=== PATIENT | male | born 1980 | race Caucasian/White ===

== ENCOUNTER 2017-08-16 13:13 | Inpatient (IN) | payer OTHER ==
[2017-08-16] VITALS (7 sets, daily range): BP systolic 104–136; BP diastolic 60–72; PULSE 117–125; TEMP 36.7–36.8; O2SAT 98–99; BMI 21.6
[~2017-08-16] VITALS: Ht 175.3 cm; Wt 67.4 kg
[2017-08-16 18:11] LABS: HEMATOCRIT 40.4 % (42-52); MEAN CELL VOLUME 96.7 fL (80-100); MEAN CORPUSCULAR HEMOGLOBIN 33.5 pg (25-34); MEAN CORPUSCULAR HGB CONC 34.7 g/dl (32-36); MEAN PLATELET VOLUME 9.7 fL (7.4-10.4); PLATELET COUNT 522 K/uL (130-400); RED CELL DISTRIBUTION WIDTH CV 13.4 % (11.5-14.5); RED CELL DISTRIBUTION WIDTH SD 47.4 fL (36.4-46.3); WHITE BLOOD COUNT 41.35 K/uL (4.8-10.8)
[2017-08-16 18:13] LABS: INR 0.9 (0.9-1.1); PTT PATIENT 23.7 SECONDS (21.0-31.0)
[2017-08-16 18:31] LABS: ALBUMIN 3.6 gm/dl (3.4-5.0); ALKALINE PHOSPHATASE 313 U/L (45-117); ALT/SGPT 431 U/L (12-78); AST/SGOT 1183 U/L (15-37); BLOOD UREA NITROGEN 38 mg/dl (7-18); CALCIUM 9.1 mg/dl (8.5-10.1); CARBON DIOXIDE 6 mmol/L (21-32); CKMB 2.9 ng/ml (0.5-3.6); CREATININE 2.48 mg/dl (0.60-1.40); GLUCOSE 702 mg/dl (70-99); PHOSPHORUS 4.4 mg/dl (2.5-4.9); POTASSIUM 4.5 mmol/L (3.5-5.1); SODIUM 135 mmol/L (136-145); TOTAL PROTEIN 7.3 gm/dl (6.4-8.2)
[2017-08-16] MEDS ORDERED: PHARMACY GLYCEMIC MGMT CONSULT SCH (19:26)
--- NOTE | 2017-08-16 19:43 | Critical Care Consultation ---
Critical Care Consultation Date of Consultation: Aug 16, 2017. Attending Physician: Sivakumar Gruber M.D. Reason for Consultation: Diabetic ketoacidosis History of Present Illness This is a 37 year old male with h/o DM type 1, with multiple episodes of DKA, transferred from [facility] for further management of diabetic ketoacidosis. Apparently he was found by his mother laying down, unresponsive, hyperventilating. In ED at [facility] he was diagnosed with DKA, had blood glucose of 1160, bicarb of 3, pH of 6.81, elevated anion gap at 36. Treated with IV fluids, insulin drip , Abx (WBC of 43), mental status improved slightly. Also treated for hyperkalemia, initially 7.1, improved to 4.9. Was transferred to us for further management. Urine drug screen negative. Came with right femoral TLC The patient is mildly lethargic, poor historian, denies non-compliance, but per reports he was surrounded by empty Mountain Dew drinks Social History Smoking Status: Unknown if Ever Smoked Allergies Coded Allergies: No Known Allergies (Unverified , 08/16/17) Current Inpatient Medications Current Inpatient Medications Medications (Trade) Dose Ordered Sig/Antolin Route Start Time Stop Time Status Last Admin Dose Admin Sodium Chloride 2,000 ml @ 999 mls/hr Q2H1M IV 08/16/17 18:00 09/15/17 17:59 UNV Sodium Chloride 1,000 ml @ 150 mls/hr Q6H40M IV 08/16/17 18:00 09/15/17 17:59 UNV Review of Systems Difficult to obtain secondary to confusion Physical Exam Date Time Temp Pulse Resp B/P (MAP) Pulse Ox O2 Delivery O2 Flow Rate FiO2 08/16/17 19:00 120 30 135/72 (93) 98 Room Air 08/16/17 17:42 36.7 120 22 108/70 99 Room Air General Appearance: moderate distress Eyes: PERRLA ENT: other (Dry oral mucosa) Neck: normal range of motion, no nuchal rigidity Respiratory: clear to auscultation, other (tachypneic) Cardiovasular: regular rate/rhythm, normal S1S2, other (Tachycardic) Abdomen: non tender, no guarding Upper Extremities: no edema Lower Extremities: no edema Neuro: lethargic, confused Laboratory Results Last 24 Hours Test 08/16/17 17:48 08/16/17 18:20 08/16/17 18:30 White Blood Count 41.35 K/uL Red Blood Count 4.18 M/uL Hemoglobin 14.0 g/dL Hematocrit 40.4 % Mean Corpuscular Volume 96.7 fL Mean Corpuscular Hemoglobin 33.5 pg Mean Corpuscular Hemoglobin Concent 34.7 g/dl Platelet Count 522 K/uL Mean Platelet Volume 9.7 fL RDW Standard Deviation 47.4 fL RDW Coefficient of Variation 13.4 % Neutrophils % (Manual) 89.7 % Lymphocytes % (Manual) 8.6 % Monocytes % (Manual) 1.7 % Neutrophils # (Manual) 37.09 K/uL Total Absolute Neutrophils 37.09 K/uL Lymphocytes # (Manual) 3.56 K/uL Total Absolute Lymphocytes 3.56 K/uL Monocytes # (Manual) 0.70 K/uL Hypersegmented Polys 1+ Prothrombin Time 9.7 SECONDS Prothromb Time International Ratio 0.9 Activated Partial Thromboplast Time 23.7 SECONDS Partial Thromboplastin Ratio 0.9 Sodium Level 135 mmol/L Potassium Level 4.5 mmol/L Chloride Level 100 mmol/L Carbon Dioxide Level 6 mmol/L Anion Gap 30.0 mmol/L Blood Urea Nitrogen 38 mg/dl Creatinine 2.48 mg/dl Est Creatinine Clear Calc Drug Dose 38.2 ml/min Estimated GFR () 37.0 Estimated GFR (Non- 31.9 BUN/Creatinine Ratio 15.4 Random Glucose 702 mg/dl Lactic Acid Level 9.0 mmol/L Calcium Level 9.1 mg/dl Phosphorus Level 4.4 mg/dl Magnesium Level 2.7 mg/dl Total Bilirubin 0.6 mg/dl Aspartate Amino Transf (AST/SGOT) 1183 U/L Alanine Aminotransferase (ALT/SGPT) 431 U/L Alkaline Phosphatase 313 U/L Total Creatine Kinase 144 U/L Creatine Kinase MB 2.9 ng/ml Creatine Kinase MB Ratio 2.0 Troponin I < 0.015 ng/ml Total Protein 7.3 gm/dl Albumin 3.6 gm/dl Globulin 3.7 gm/dl Albumin/Globulin Ratio 1.0 Beta-Hydroxybutyric Acid 68.80 mg/dL Procalcitonin 13.12 ng/ml Venous Blood pH 7.23 Venous Blood Partial Pressure CO2 22 mmHg Venous Blood Partial Pressure O2 43 mmHg Venous Blood HCO3 9 mmol/L Venous Blood Oxygen Saturation 74.6 % Venous Blood Base Excess -16.6 mEq/L Urine Color YELLOW Urine Appearance CLOUDY Urine pH 5.0 Urine Specific [place] 1.033 Urine Protein 2+ Urine Glucose (UA) 3+ Urine Ketones 2+ Urine Occult Blood 2+ Urine Nitrite NEG Urine Bilirubin NEG Urine Urobilinogen NEG Urine Leukocyte Esterase NEG Assessment & Plan Severe DKA MARYJANE SIRS, rule out sepsis DM-1 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 Doubt meningitis. No need for CT brain, monitor clinically Pulmonary: Protecting his airway well Kussmaul breathing CXR not seen in [facility] papers. Will order CVS: Severely dehydrated Continue IV fluids Endo: Continue insulin drip Check HbA1C Renal/metabolic: Monitor chemistry every 4 hours Gap still elevated, 30 now Keep Hirsch in, has significant urine output, representing osmotic diuresis Elevated lactic acid, continue to trend ID: Blood cultures sent at [facility]. Received Vanco and Zosyn over there, will continue same. Add Zithromax Trend procalcitonin and lactic acid GI: NPO Protonix for GI bleeding prophylaxis Trend LFTs. May represent shock liver, being hypotensive initially Heme: Significant leukocytosis. May very well be related to DKA, still doubt infectious insult DVT prophylaxis: SC heparin Critical care time spent with the patient, reviewing chart, discussing with consultants, excluding procedures, greater than 35 minutes
[2017-08-16] MEDS ORDERED: GLUCOSE 10 TABS/TUBE PO PRN (19:45)
[2017-08-16] MEDS ORDERED: INSULIN HUMAN REGULAR IV BOLUS 2.5 UNIT in SYRINGE 0 ML IV SCH (19:45)
[2017-08-16] MEDS ORDERED: VANCOMYCIN CONSULT ACTIVE PRN (19:45)
[2017-08-16] MEDS ORDERED: GLUCAGON FOR INJ 1 MG VIAL SQ PRN (19:45)
[2017-08-16] MEDS ORDERED: GLUCOSE 40% GEL 15 GM TUBE PO PRN (19:45)
[2017-08-16] MEDS ORDERED: PIPERACILL/TAZOBAC CONSULT ACTIVE PRN (19:45)
[2017-08-16] MEDS ORDERED: DEXTROSE 50% 50 ML SYR IV PRN (19:45)
[2017-08-16] MEDS ORDERED: INSULIN IV INFUSION PROTOCOL STA (19:47)
[2017-08-16] MEDS ORDERED: SODIUM CHLORIDE 0.9% 1000ML 1,000 ML IV SCH ×2 (19:47→20:00)
[2017-08-16] MEDS: SODIUM CHLORIDE 0.9% 1000ML 1,000 ML IV SCH ×2 (19:58→20:36)
[2017-08-16] MEDS ORDERED: PENDING NSS+20mEq KCL IVF SCH (20:00)
[2017-08-16] MEDS: INSULIN REGULAR 250 UNITS in SODIUM CHLORIDE 0.9% 250ML 250 ML IV SCH (20:00)
[2017-08-16] MEDS ORDERED: DKA GOAL RANGE 150-250 mg/dl 1 EA ONE (20:00)
[2017-08-16] MEDS ORDERED: PENDING D5 1/2NS+20mEq KCL IVF SCH (20:00)
[2017-08-16] MEDS ORDERED: SEVERE STRESS LEVEL ONE (20:00)
[2017-08-16] MEDS: INSULIN ASPART 100 UNITS/ML 3 ML PEN SC SCH (20:01)
[2017-08-16] MEDS ORDERED: MoRPHine SULFATE 2 MG/ML CARP IV PRN (20:15)
[2017-08-16] MEDS ORDERED: FENTANYL CITRATE INJ 50 MCG/1 ML 2 ML VIAL IV PRN (20:15)
[2017-08-16] MEDS ORDERED: LORAZEPAM 2 MG/ML 1 ML VIAL IV PRN (20:15)
[2017-08-16] MEDS: ONDANSETRON INJ 2 MG/ML 2 ML VIAL IV PRN (20:35)
[2017-08-16] MEDS ORDERED: LORAZEPAM INJ 0.5 MG in SYRINGE 0.75 ML IV PRN (20:45)
--- NOTE | 2017-08-16 20:55 | History and Physical ---
History & Physical Date & Time of Service: Aug 16, 2017 at 20:32 Chief Complaint: Severe Dka Primary Care Physician: No Doctor, Assigned History of Present Illness Source: patient This patient is a 37-year-old male with history of type 1 diabetes, major depressive disorder, and anxiety disorder, who presents as a direct transfer from [facility] emergency room with DKA. He was reportedly found down by his family, hyperventilating, and minimally responsive. In ED at [facility] he was diagnosed with DKA, had blood glucose of 1160, bicarb of 3, pH of 6.81, elevated anion gap at 36. Treated with IV fluids, insulin drip , Abx (WBC of 43), mental status improved slightly. Also treated for hyperkalemia, initially 7.1, improved to 4.9. Was transferred to us for further management. Urine drug screen negative. Came with right femoral TLC The patient is mildly lethargic, denies non-compliance, but per reports he was surrounded by empty Mountain Dew drinks. Patient reports some nausea and abdominal pain, maybe a recent runny nose, but otherwise has been feeling well until one day ago. Denies fevers at home. No flulike symptoms. Past Medical/Surgical History PMH: Diabetes mellitus type 1 Major depressive disorder Anxiety disorder PSH: Cholecystectomy Left ACL repair Right ankle ORIF Family History Father- at age 46 from a traumatic accident, otherwise healthy Mother-diabetes mellitus type 2 Social History Home medications: Prozac 60 mg p.o. nightly B12 1000 mcg p.o. daily Lantus 8 units subcu twice daily NovoLog 7 units q. before meals at bedtime plus sliding scale for carb coverage ? Lamictal? Smoking Status: Never Smoker Alcohol Use: none Drug Use: none Marital Status: single Housing status: lives with family (Lives with his mom) Occupational Status: disabled, other (Got his high school diploma) Allergies Coded Allergies: No Known Allergies (Unverified , 08/16/17) Review of Systems Constitutional: No fever, No chills Eyes: No problem reported ENT: + nasal symptoms (Rhinorrhea), No sore throat Respiratory: No cough, No shortness of breath Cardiovascular: No chest pain Abdomen: + pain, + nausea, + vomiting Musculoskeletal: No problem reported Genitourinary - Male: No problem reported Neurologic: No problem reported Psychiatric: + depression symptoms, + anxiety, No substance abuse Endocrine: + fatigue Hematologic / Lymphatic: No problem reported Integumentary: No problem reported Allergic / Immunologic: No problem reported Physical Exam Vital Signs Date Time Temp Pulse Resp B/P (MAP) Pulse Ox O2 Delivery O2 Flow Rate FiO2 08/16/17 19:00 120 30 135/72 (93) 98 Room Air 08/16/17 17:42 36.7 120 22 108/70 99 Room Air General Appearance: no apparent distress (Mildly lethargic, appears ill) Head: normocephalic, atraumatic Eyes: normal inspection, PERRL, EOMI, + abnormal sclerae exam (Injected) ENT: hearing grossly normal, + pertinent finding (Very dry tongue and mucous membranes) Neck: no adenopathy, trachea midline Respiratory/Chest: lungs clear, normal breath sounds, no respiratory distress, no accessory muscle use Cardiovascular: no edema, no gallop, no murmur, normal peripheral pulses, + tachycardia (With regular rhythm) Abdomen/GI: normal bowel sounds, non tender, soft, no organomegaly Genitourinary - Male: normal male genitalia (With Hirsch catheter in place) Back: normal inspection Extremities/Musculoskelatal: normal inspection, no calf tenderness, normal capillary refill, no pedal edema, normal range of motion Neurologic/Psych: no motor/sensory deficits, alert, + depressed affect Skin: normal color, warm/dry, no rash Lymphatic: no adenopathy Diagnostics Laboratory Results Results Past 24 Hours Test 08/16/17 17:48 08/16/17 18:20 08/16/17 18:30 08/16/17 19:18 Range/Units White Blood Count 41.35 4.8-10.8 K/uL Red Blood Count 4.18 4.7-6.1 M/uL Hemoglobin 14.0 14.0-18.0 g/dL Hematocrit 40.4 42-52 % Mean Corpuscular Volume 96.7 80-100 fL Mean Corpuscular Hemoglobin 33.5 25-34 pg Mean Corpuscular Hemoglobin Concent 34.7 32-36 g/dl Platelet Count 522 130-400 K/uL Mean Platelet Volume 9.7 7.4-10.4 fL RDW Standard Deviation 47.4 36.4-46.3 fL RDW Coefficient of Variation 13.4 11.5-14.5 % Neutrophils % (Manual) 89.7 % Lymphocytes % (Manual) 8.6 % Monocytes % (Manual) 1.7 % Neutrophils # (Manual) 37.09 1.4-6.5 K/uL Total Absolute Neutrophils 37.09 1.4-6.5 K/uL Lymphocytes # (Manual) 3.56 1.2-3.4 K/uL Total Absolute Lymphocytes 3.56 1.2-3.4 K/uL Monocytes # (Manual) 0.70 0.11-0.59 K/uL Hypersegmented Polys 1+ Prothrombin Time 9.7 9.0-12.0 SECONDS Prothromb Time International Ratio 0.9 0.9-1.1 Activated Partial Thromboplast Time 23.7 21.0-31.0 SECONDS Partial Thromboplastin Ratio 0.9 Sodium Level 135 136-145 mmol/L Potassium Level 4.5 3.5-5.1 mmol/L Chloride Level 100 98-107 mmol/L Carbon Dioxide Level 6 21-32 mmol/L Anion Gap 30.0 3-11 mmol/L Blood Urea Nitrogen 38 7-18 mg/dl Creatinine 2.48 0.60-1.40 mg/dl Est Creatinine Clear Calc Drug Dose 38.2 ml/min Estimated GFR () 37.0 Estimated GFR (Non- 31.9 BUN/Creatinine Ratio 15.4 10-20 Random Glucose 702 70-99 mg/dl Lactic Acid Level 9.0 0.4-2.0 mmol/L Calcium Level 9.1 8.5-10.1 mg/dl Phosphorus Level 4.4 2.5-4.9 mg/dl Magnesium Level 2.7 1.8-2.4 mg/dl Total Bilirubin 0.6 0.2-1 mg/dl Aspartate Amino Transf (AST/SGOT) 1183 15-37 U/L Alanine Aminotransferase (ALT/SGPT) 431 12-78 U/L Alkaline Phosphatase 313 45-117 U/L Total Creatine Kinase 144 39-308 U/L Creatine Kinase MB 2.9 0.5-3.6 ng/ml Creatine Kinase MB Ratio 2.0 0-3.0 Troponin I < 0.015 0-0.045 ng/ml Total Protein 7.3 6.4-8.2 gm/dl Albumin 3.6 3.4-5.0 gm/dl Globulin 3.7 2.5-4.0 gm/dl Albumin/Globulin Ratio 1.0 0.9-2 Beta-Hydroxybutyric Acid 68.80 0.2-2.81 mg/dL Procalcitonin 13.12 0-0.5 ng/ml Venous Blood pH 7.23 7.36-7.41 Venous Blood Partial Pressure CO2 22 38.0-50.0 mmHg Venous Blood Partial Pressure O2 43 mmHg Venous Blood HCO3 9 mmol/L Venous Blood Oxygen Saturation 74.6 % Venous Blood Base Excess -16.6 mEq/L Urine Color YELLOW Urine Appearance CLOUDY CLEAR Urine pH 5.0 4.5-7.5 Urine Specific [place] 1.033 1.000-1.030 Urine Protein 2+ NEG Urine Glucose (UA) 3+ NEG Urine Ketones 2+ NEG Urine Occult Blood 2+ NEG Urine Nitrite NEG NEG Urine Bilirubin NEG NEG Urine Urobilinogen NEG NEG Urine Leukocyte Esterase NEG NEG Urine WBC (Auto) 10-30 0-5 /hpf Urine RBC (Auto) 10-30 0-4 /hpf Urine Hyaline Casts (Auto) 1-5 0-5 /lpf Urine Epithelial Cells (Auto) >30 0-5 /lpf Urine Bacteria (Auto) NEG NEG Urine Renal Epithelial Cells 0-5 /lpf Urine Pathogenic Casts 1-5 GRANULAR CASTS 0 /lpf Urine Yeast (Auto) NONE PRSENT Bedside Glucose (other) 404 70-99 mg/dl Test 08/16/17 20:00 Range/Units Microbiology Results 08/16/17 MRSA DNA Surveillance Screen - Final, Complete Specimen Negative for MRSA by DNA Probe Diagnostic Radiology CXR ordered but still not done Impression Assessment and Plan This patient is a 37-year-old male with history of type 1 diabetes, major depressive disorder, and anxiety disorder, who presents as a direct transfer from [facility] emergency room with DKA. He was reportedly found down by his family, hyperventilating, and minimally responsive. In ED at [facility] he was diagnosed with DKA, had blood glucose of 1160, bicarb of 3, pH of 6.81, elevated anion gap at 36. Treated with IV fluids, insulin drip , Abx (WBC of 43), mental status improved slightly. Also treated for hyperkalemia, initially 7.1, improved to 4.9. Was transferred to us for further management. Urine drug screen negative. Came with right femoral TLC The patient is mildly lethargic, denies non-compliance, but per reports he was surrounded by empty Mountain Dew drinks. Patient reports some nausea and abdominal pain, maybe a recent runny nose, but otherwise has been feeling well until one day ago. Denies fevers at home. No flulike symptoms. DKA/lactic acidosis/DMI-with profound hyperglycemia of 1160, bicarb of 3, pH of 6.81, elevated anion gap at 36. Treated with IV fluids, insulin drip and transferred here. Laboratory values here are improved showing pH 7.22, glucose down to 702 and then down to 400, bicarb up to 6, and anion gap down to 30. With SIRS, no definite source of sepsis, had recent cold symptoms, leukocytosis could be secondary to stress response -Admitted to ICU-appreciate charge master coordinator management -Continue aggressive IV fluids and add D5 to IV fluids when glu<250 -Continue insulin drip, Accu-Cheks as per protocol -Follow chemistry panel, lactate, phosphorus, VBGs every 4 hours -Check hemoglobin A1c -Monitor I/O's, maintain Hirsch catheter -Diabetic education should be ordered SIRS-WBCs 40 K, tachycardic, afebrile, tachypneic on arrival, no definite source of infection. UA is negative for infection. Blood cultures were obtained at [facility]. Pro calcitonin is elevated at 13 -Check chest x-ray now -Follow blood cultures from [facility] -Continue empiric antibiotics with vancomycin, Zosyn, and azithromycin for broad coverage MARYJANE-creatinine 2.48 on arrival here and likely secondary to profound dehydration , prerenal azotemia -Continue IV hydration -Follow chemistry panel -Renally dose medications -Avoid nephrotoxins Shock liver-transaminases significantly elevated could be from hypotensive episode prior to arrival. INR is normal, total bilirubin is normal -Blood pressures have improved -Follow liver panel Major depressive disorder/anxiety disorder-seems stable at this time -Continue Prozac, ?Lamictal-awaiting home med rec to be completed and then should restart home meds when taking p.o. Prophylaxis-heparin subcu, Protonix IV, keep n.p.o. for now Disposition-remain in the ICU Full code Level of Care Critical Care Advanced Directives Existing Living Will: No Existing Power of Senior Project Controls Specialist: No Resuscitation Status FULL RESUSCITATION VTE Prophylaxis VTE Risk Assessment Done? Y/N: Yes Risk Level: Moderate Given or contraindicated: Unfractionated heparin SQ Note Total Time: Critical Care 30 - 74 minutes
[2017-08-16] MEDS ORDERED: INSULIN ASPART 100 UNITS/ML 3 ML PEN SC SCH (21:00)
[2017-08-16] MEDS: AZITHROMYCIN IV 500 MG in DEXTROSE 5% 250ML 250 ML IV SCH (21:06)
[2017-08-16] MEDS: PIPERACILL/TAZOBAC IV 4.5 GM in DEXTROSE 5% 100ML IV SCH (21:07)
[2017-08-16] MEDS: PANTOprazole INJ 40 MG in SYRINGE 0 ML IV SCH (21:07)
[2017-08-16] MEDS: VANCOMYCIN INJ 1,000 MG in SODIUM CHLORIDE 0.9% 250ML 250 ML IV SCH (21:07)
[2017-08-16] MEDS ORDERED: FLUO27.5 PO (21:19)
[2017-08-16] MEDS ORDERED: NXM/40 PO (21:19)
[2017-08-16] MEDS ORDERED: NVLGI/PEN SQ (21:19)
[2017-08-16] MEDS ORDERED: INSDGIPEN SC (21:19)
[2017-08-16] MEDS ORDERED: ATOR-24 PO (21:19)
[2017-08-16] MEDS ORDERED: LAMO25TA PO (21:19)
--- NOTE | 2017-08-16 21:33 | DIAGNOSTIC IMAGING REPORT ---
CHEST ONE VIEW PORTABLE CLINICAL HISTORY: severe DKA, r/o sepsis dyspnea COMPARISON STUDY: No previous studies for comparison. FINDINGS: The bones soft tissues and hemidiaphragms are normal. The cardiomediastinal silhouette is normal. The lungs are clear. The pulmonary vasculature is normal. IMPRESSION: Negative chest. The above report was generated using voice recognition software. It may contain grammatical, syntax or spelling errors. Electronically signed by: Michael August M.D. 08/16/2017 9:31 PM Dictated Date/Time: 08/16/2017 9:31 PM
[2017-08-16] MEDS: HEPARIN SOD 5000 UNIT/0.5 ML CARP SQ SCH (23:09)
[2017-08-17] VITALS (12 sets, daily range): BP systolic 105–128; BP diastolic 64–76; PULSE 97–111; TEMP 36.6–37; O2SAT 95–100; Ht 175.3 cm; Wt 67.4 kg
[2017-08-17 00:35] LABS: ALBUMIN 3.1 gm/dl (3.4-5.0); CALCIUM 8.1 mg/dl (8.5-10.1); CREATININE 1.92 mg/dl (0.60-1.40); POTASSIUM 4.2 mmol/L (3.5-5.1)
[2017-08-17 00:36] LABS: PHOSPHORUS 2.9 mg/dl (2.5-4.9); TOTAL PROTEIN 6.1 gm/dl (6.4-8.2)
[2017-08-17] MEDS ORDERED: NURSING VERBAL MED ORDER ONE ×2 (01:30→03:15)
[2017-08-17] MEDS ORDERED: NSS + 20MEQ KCL 1000ML 1,000 ML IV SCH (01:45)
[2017-08-17] MEDS: D5W AND 1/2NSS + 20MEQ KCL 1,000 ML IV SCH ×2 (03:26→09:58)
[2017-08-17] MEDS: PIPERACILL/TAZOBAC IV 4.5 GM in DEXTROSE 5% 100ML IV SCH ×3 (03:28→20:56)
[2017-08-17 04:30] LABS: CALCIUM 7.9 mg/dl (8.5-10.1); CREATININE 1.63 mg/dl (0.60-1.40); POTASSIUM 3.8 mmol/L (3.5-5.1)
[2017-08-17 04:33] LABS: PHOSPHORUS 2.4 mg/dl (2.5-4.9); TOTAL PROTEIN 5.8 gm/dl (6.4-8.2)
[2017-08-17 04:40] LABS: HEMATOCRIT 32.1 % (42-52); HEMOGLOBIN 11.6 g/dL (14.0-18.0); MEAN CELL VOLUME 91.2 fL (80-100); MEAN CORPUSCULAR HGB CONC 36.1 g/dl (32-36); MEAN PLATELET VOLUME 9.1 fL (7.4-10.4); PLATELET COUNT 389 K/uL (130-400); RED CELL DISTRIBUTION WIDTH CV 13.5 % (11.5-14.5); RED CELL DISTRIBUTION WIDTH SD 44.9 fL (36.4-46.3); WHITE BLOOD COUNT 22.43 K/uL (4.8-10.8)
[2017-08-17] MEDS: HEPARIN SOD 5000 UNIT/0.5 ML CARP SQ SCH ×3 (05:59→21:07)
[2017-08-17] MEDS: ONDANSETRON INJ 2 MG/ML 2 ML VIAL IV PRN (06:00)
[2017-08-17 06:47] LABS: HEMOGLOBIN A1C 9.6 % (4.5-5.6)
[2017-08-17] MEDS: INSULIN ASPART 100 UNITS/ML 3 ML PEN SC SCH ×5 (07:32→23:46)
[2017-08-17] MEDS: VANCOMYCIN INJ 1,000 MG in SODIUM CHLORIDE 0.9% 250ML 250 ML IV SCH ×2 (07:34→20:58)
[2017-08-17 08:42] LABS: ALBUMIN 3.5 gm/dl (3.4-5.0); CALCIUM 8.9 mg/dl (8.5-10.1); CREATININE 1.8 mg/dl (0.60-1.40); POTASSIUM 3.8 mmol/L (3.5-5.1)
[2017-08-17 08:45] LABS: PHOSPHORUS 2.5 mg/dl (2.5-4.9); TOTAL PROTEIN 6.8 gm/dl (6.4-8.2)
[2017-08-17] MEDS ORDERED: INSULIN GLARGINE SOLOSTAR 100 UNITS/ML 3 ML PEN SC ONE ×2 (08:45→15:00)
--- NOTE | 2017-08-17 08:48 | Clinical Documentation Query ---
JONAS Michael : CLINICAL DOCUMENTATION QUERY Patient is a 37 year old male admitted for DKA. In the setting of lactic acidemia/anion gap acidosis associated with DKA, consider the AMS to be a manifestation of this constellation of clinical findings as suggested below. He has been treated with IVF, insulin infusion, serial chemistries, empiric antibiotics, ICU standard of care, nnp consultation. In your clinical opinion is this patient being managed for: ( ) Metabolic encephalopathy ( ) Not Agree ( ) Other explanation of clinical findings (Please Explain) ( ) Unable to determine (Please Define) ( ) Need to Discuss The medical record reflects the following clinical findings, treatment, and risk factors. Clinical Indicators: As above Treatment:He has been treated with IVF, insulin infusion, serial chemistries, empiric antibiotics, ICU standard of care, nnp consultation Risk Factors: DKA and associated severe lactic acidosis Please clarify and document your clinical opinion in the progress notes and discharge summary. Terms such as "probable", "suspected", "likely", "questionable", "possible", or "still to be ruled out" are acceptable. IF IN AGREEMENT, YOU MUST DOCUMENT ABOVE DIAGNOSTIC STATEMENT IN DAILY PROGRESS NOTES AND DISCHARGE SUMMARY. This document is not part of the patient's record. Thank You, Rohith Madrid, ELZA [phone]
--- NOTE | 2017-08-17 08:49 | Clinical Documentation Query ---
NIK Tabor : CLINICAL DOCUMENTATION QUERY Patient is a 37 year old male admitted for DKA. In the setting of lactic acidemia/anion gap acidosis associated with DKA, consider the AMS to be a manifestation of this constellation of clinical findings as suggested below. He has been treated with IVF, insulin infusion, serial chemistries, empiric antibiotics, ICU standard of care, software quality automation engineer consultation. In your clinical opinion is this patient being managed for: ( ) Metabolic encephalopathy ( ) Not Agree ( ) Other explanation of clinical findings (Please Explain) ( ) Unable to determine (Please Define) ( ) Need to Discuss The medical record reflects the following clinical findings, treatment, and risk factors. Clinical Indicators: As above Treatment:He has been treated with IVF, insulin infusion, serial chemistries, empiric antibiotics, ICU standard of care, software quality automation engineer consultation Risk Factors: DKA Please clarify and document your clinical opinion in the progress notes and discharge summary. Terms such as "probable", "suspected", "likely", "questionable", "possible", or "still to be ruled out" are acceptable. IF IN AGREEMENT, YOU MUST DOCUMENT ABOVE DIAGNOSTIC STATEMENT IN DAILY PROGRESS NOTES AND DISCHARGE SUMMARY. This document is not part of the patient's record. Thank You, Rohith Madrid, ELZA [phone]
--- NOTE | 2017-08-17 09:00 | Hospitalist Progress Note ---
Hospitalist Progress Note Date of Service Aug 17, 2017. (Cristina Li PA-C) Subjective Pt evaluation today including: conversation w/ patient, physical exam, chart review, lab review, review of studies Pain: none PO Intake: NPO Voiding: ferrera catheter in place (draining clear yellow urine) The patient was seen and examined this morning. Pt reports doing "fine" this morning. He has no acute complaints. The patient does not offer much history and keeps his responses short, 1-2 word answers. He understands attempting to transition off the insulin gtt today, and will be moved to medical floor. ROS: Constitutional: No fever, sweats or chills Eyes: No diplopia, no worsening or blurred vision ENT: normal hearing, no trouble swallowing Respiratory: No cough, sputum, dyspnea at rest or on exertion Cardiovascular: No chest pain, tightness or palpitations Abdomen: No pain, nausea, vomiting, diarrhea or constipation Musculoskeletal: No joint pain, calf pain, swelling Neurologic: No weakness, numbness/tingling, or balance problems Psychiatric: No anxiety or depression Skin: No rash or itch (Cristina Li PA-C) Objective Vital Signs Date Time Temp Pulse Resp B/P (MAP) Pulse Ox O2 Delivery O2 Flow Rate FiO2 08/17/17 08:00 99 95 08/17/17 07:30 99 Room Air 08/17/17 07:00 36.7 99 16 105/68 (80) 98 Room Air 08/17/17 06:01 97 20 127/76 (93) 100 Room Air 08/17/17 05:01 102 128/74 (92) 99 Room Air 08/17/17 04:01 37.0 105 18 122/68 (86) 98 Room Air 08/17/17 04:00 Room Air 08/17/17 02:00 109 20 123/71 (88) 100 Room Air 08/17/17 01:01 108 118/68 (85) 100 08/17/17 00:01 37.0 111 22 125/64 (84) 98 Room Air 08/16/17 23:59 Room Air 08/16/17 23:01 117 129/63 (85) 98 08/16/17 22:01 118 24 134/70 (91) 99 Room Air 08/16/17 21:00 118 136/68 (90) 98 08/16/17 20:01 36.8 125 22 104/60 (75) 98 Room Air 08/16/17 20:00 98 Room Air 08/16/17 19:00 120 30 135/72 (93) 98 Room Air 08/16/17 17:42 36.7 120 22 108/70 99 Room Air (Cristina Li PA-C) Physical Exam Notes: General: awake, alert, no apparent distress. Thin Head: Normocephalic, atraumatic ENT: PERRL, EOMI, no pharyngeal exudate, mucous membranes slightly dry Chest: Clear to auscultation, on room air, no adventitious breath sounds Cardiac: Regular rate and rhythm, no murmur, no JVD, normal peripheral pulses, good capillary refill Abdominal: NABS x 4 quadrants, soft, nontender to palpation, no rebound, guarding or tenderness Extremities: Normal inspection, no peripheral edema or erythema, calfs nontender to palpation Psych: Normal mood, affect is flat, limits information given to me during interview. Neuro: AAO x 3, strength intact bilaterally and related 5/5, no motor deficits, speech is clear, no peripheral sensory deficits (Cristina Li PA-C) Laboratory Results Last 24 Hours Test 08/16/17 17:48 08/16/17 18:20 08/16/17 18:30 08/16/17 19:18 White Blood Count 41.35 K/uL Red Blood Count 4.18 M/uL Hemoglobin 14.0 g/dL Hematocrit 40.4 % Mean Corpuscular Volume 96.7 fL Mean Corpuscular Hemoglobin 33.5 pg Mean Corpuscular Hemoglobin Concent 34.7 g/dl Platelet Count 522 K/uL Mean Platelet Volume 9.7 fL RDW Standard Deviation 47.4 fL RDW Coefficient of Variation 13.4 % Neutrophils % (Manual) 89.7 % Lymphocytes % (Manual) 8.6 % Monocytes % (Manual) 1.7 % Neutrophils # (Manual) 37.09 K/uL Total Absolute Neutrophils 37.09 K/uL Lymphocytes # (Manual) 3.56 K/uL Total Absolute Lymphocytes 3.56 K/uL Monocytes # (Manual) 0.70 K/uL Hypersegmented Polys 1+ Prothrombin Time 9.7 SECONDS Prothromb Time International Ratio 0.9 Activated Partial Thromboplast Time 23.7 SECONDS Partial Thromboplastin Ratio 0.9 Sodium Level 135 mmol/L Potassium Level 4.5 mmol/L Chloride Level 100 mmol/L Carbon Dioxide Level 6 mmol/L Anion Gap 30.0 mmol/L Blood Urea Nitrogen 38 mg/dl Creatinine 2.48 mg/dl Est Creatinine Clear Calc Drug Dose 38.2 ml/min Estimated GFR () 37.0 Estimated GFR (Non- 31.9 BUN/Creatinine Ratio 15.4 Random Glucose 702 mg/dl Lactic Acid Level 9.0 mmol/L Calcium Level 9.1 mg/dl Phosphorus Level 4.4 mg/dl Magnesium Level 2.7 mg/dl Total Bilirubin 0.6 mg/dl Aspartate Amino Transf (AST/SGOT) 1183 U/L Alanine Aminotransferase (ALT/SGPT) 431 U/L Alkaline Phosphatase 313 U/L Total Creatine Kinase 144 U/L Creatine Kinase MB 2.9 ng/ml Creatine Kinase MB Ratio 2.0 Troponin I < 0.015 ng/ml Total Protein 7.3 gm/dl Albumin 3.6 gm/dl Globulin 3.7 gm/dl Albumin/Globulin Ratio 1.0 Beta-Hydroxybutyric Acid 68.80 mg/dL Procalcitonin 13.12 ng/ml Venous Blood pH 7.23 Venous Blood Partial Pressure CO2 22 mmHg Venous Blood Partial Pressure O2 43 mmHg Venous Blood HCO3 9 mmol/L Venous Blood Oxygen Saturation 74.6 % Venous Blood Base Excess -16.6 mEq/L Urine Color YELLOW Urine Appearance CLOUDY Urine pH 5.0 Urine Specific [place] 1.033 Urine Protein 2+ Urine Glucose (UA) 3+ Urine Ketones 2+ Urine Occult Blood 2+ Urine Nitrite NEG Urine Bilirubin NEG Urine Urobilinogen NEG Urine Leukocyte Esterase NEG Urine WBC (Auto) 10-30 /hpf Urine RBC (Auto) 10-30 /hpf Urine Hyaline Casts (Auto) 1-5 /lpf Urine Epithelial Cells (Auto) >30 /lpf Urine Bacteria (Auto) NEG Urine Renal Epithelial Cells /lpf Urine Pathogenic Casts 1-5 GRANULAR CASTS /lpf Urine Yeast (Auto) Bedside Glucose (other) 404 mg/dl Test 08/16/17 20:00 08/16/17 21:19 08/16/17 22:14 08/16/17 23:04 Estimated Average Glucose 229 mg/dl Hemoglobin A1c 9.6 % Bedside Glucose (other) 350 mg/dl Bedside Glucose 394 mg/dl 280 mg/dl Test 08/16/17 23:54 08/16/17 23:57 08/17/17 01:00 08/17/17 01:55 Venous Blood pH 7.34 Sodium Level 144 mmol/L Potassium Level 4.2 mmol/L Chloride Level 111 mmol/L Carbon Dioxide Level 14 mmol/L Anion Gap 19.0 mmol/L Blood Urea Nitrogen 31 mg/dl Creatinine 1.92 mg/dl Est Creatinine Clear Calc Drug Dose 49.4 ml/min Estimated GFR () 50.4 Estimated GFR (Non- 43.5 BUN/Creatinine Ratio 16.2 Random Glucose 263 mg/dl Lactic Acid Level 5.1 mmol/L Calcium Level 8.1 mg/dl Phosphorus Level 2.9 mg/dl Magnesium Level 2.2 mg/dl Total Bilirubin 0.7 mg/dl Aspartate Amino Transf (AST/SGOT) 496 U/L Alanine Aminotransferase (ALT/SGPT) 315 U/L Alkaline Phosphatase 247 U/L Ammonia 28.0 umol/L Total Protein 6.1 gm/dl Albumin 3.1 gm/dl Globulin 3.0 gm/dl Albumin/Globulin Ratio 1.0 Bedside Glucose 255 mg/dl 275 mg/dl 239 mg/dl Test 08/17/17 03:01 08/17/17 03:57 08/17/17 03:59 08/17/17 05:00 Bedside Glucose 153 mg/dl 233 mg/dl 247 mg/dl White Blood Count 22.43 K/uL Red Blood Count 3.52 M/uL Hemoglobin 11.6 g/dL Hematocrit 32.1 % Mean Corpuscular Volume 91.2 fL Mean Corpuscular Hemoglobin 33.0 pg Mean Corpuscular Hemoglobin Concent 36.1 g/dl Platelet Count 389 K/uL Mean Platelet Volume 9.1 fL RDW Standard Deviation 44.9 fL RDW Coefficient of Variation 13.5 % Neutrophils % (Manual) 78.2 % Lymphocytes % (Manual) 14.8 % Monocytes % (Manual) 6.1 % Metamyelocytes % 0.9 % Neutrophils # (Manual) 17.54 K/uL Total Absolute Neutrophils 17.54 K/uL Lymphocytes # (Manual) 3.32 K/uL Total Absolute Lymphocytes 3.32 K/uL Monocytes # (Manual) 1.37 K/uL Metamyelocytes # 0.20 K/uL Venous Blood pH 7.36 Sodium Level 144 mmol/L Potassium Level 3.8 mmol/L Chloride Level 113 mmol/L Carbon Dioxide Level 17 mmol/L Anion Gap 14.0 mmol/L Blood Urea Nitrogen 30 mg/dl Creatinine 1.63 mg/dl Est Creatinine Clear Calc Drug Dose 58.2 ml/min Estimated GFR () 61.5 Estimated GFR (Non- 53.0 BUN/Creatinine Ratio 18.3 Random Glucose 239 mg/dl Lactic Acid Level 1.6 mmol/L Calcium Level 7.9 mg/dl Phosphorus Level 2.4 mg/dl Magnesium Level 2.1 mg/dl Total Bilirubin 0.5 mg/dl Aspartate Amino Transf (AST/SGOT) 366 U/L Alanine Aminotransferase (ALT/SGPT) 271 U/L Alkaline Phosphatase 229 U/L Total Protein 5.8 gm/dl Albumin 3.0 gm/dl Globulin 2.8 gm/dl Albumin/Globulin Ratio 1.1 Procalcitonin 19.63 ng/ml Test 08/17/17 06:02 08/17/17 07:53 Bedside Glucose 267 mg/dl Venous Blood pH 7.35 Sodium Level 145 mmol/L Potassium Level 3.8 mmol/L Chloride Level 112 mmol/L Carbon Dioxide Level 19 mmol/L Anion Gap 14.0 mmol/L Blood Urea Nitrogen 27 mg/dl Creatinine 1.80 mg/dl Est Creatinine Clear Calc Drug Dose 53.6 ml/min Estimated GFR () 54.5 Estimated GFR (Non- 47.0 BUN/Creatinine Ratio 14.8 Random Glucose 205 mg/dl Lactic Acid Level 4.0 mmol/L Calcium Level 8.9 mg/dl Phosphorus Level 2.5 mg/dl Magnesium Level 2.2 mg/dl Total Bilirubin 0.6 mg/dl Aspartate Amino Transf (AST/SGOT) 355 U/L Alanine Aminotransferase (ALT/SGPT) 288 U/L Alkaline Phosphatase 251 U/L Total Protein 6.8 gm/dl Albumin 3.5 gm/dl Globulin 3.3 gm/dl Albumin/Globulin Ratio 1.1 (Cristina Li PA-C) Assessment and Plan 37 yo M with PMHx DM I, MDD, anxiety, who presents as a direct transfer from [facility] emergency room with DKA. He was reportedly found down by his family, hyperventilating, and minimally responsive. DKA in setting of DM I Lactic Acidosis Metabolic encephalopathy - In ICU - with profound hyperglycemia of 1160, bicarb of 3, pH of 6.81, elevated anion gap at 36. Treated with IV fluids, insulin drip and transferred here. Labs improved with pH 7.35, hfcryjs=156, bicarb=19, AG= 14. - Repeating PRP this afternoon to determine if anion gap and bicarb are improving - SIRS without definite source- had recent cold symptoms, leukocytosis could be secondary to stress response - Continue aggressive IV fluids - now on D5 + KCl since glucose controlled - Transitioning off gtt, given Lantus 12 U this morning. Attempt to open keep off insulin drip overnight, continue Accu-Cheks as per protocol. Glycemic pharmacy on board. - A1c=9.6 - Large urine outs likely representing osmotic diuresis, maintain Ferrera catheter - Diabetic education consulted SIRS-WBCs 40 K, tachycardic, afebrile, tachypneic on arrival, no definite source of infection. UA is negative for infection. Blood cultures were obtained at [facility]. Pro calcitonin is elevated at 13 - WBC improved to 22K, CXR appears negative. - Follow blood cultures from [facility] - Continue empiric antibiotics with vancomycin, Zosyn, and azithromycin for broad coverage (started 08/16) MARYJANE - creatinine 2.48 on arrival here and likely secondary to profound dehydration, prerenal azotemia - improved to 1.80 - Continue IV hydration - Follow PRP, renally dose meds, avoid nephrotoxins Shock liver-transaminases significantly elevated could be from hypotensive episode prior to arrival. - INR is normal, total bilirubin is normal - follow LFTs with a.m. labs - BP stable Major depressive disorder/anxiety disorder-seems stable at this time - Continue Prozac, ?Lamictal-awaiting home med rec to be completed and then should restart home meds when taking p.o. DVT ppx: heparin subq Disposition- from home, in ICU, transfer to medical floor today. (Cristina Li, MALIK) LEILA Physician Supervision Note: I interviewed and examined the patient. Discussed with Cristina Filipowicz PAC and agree with findings and plan as documented in the note. Any exceptions or clarifications are listed here: None Patient is recovered nicely from his diabetic ketoacidosis he's up awake alert and eating a meal he is transition from his intravenous insulin infusion to basal bolus insulin but does still require some hydration. His anion gap is not completely closed with bicarbonate 19 and anion gap of 14 his glucoses are hovering the 200-300 range Vital signs show temp 36 7 pulse 99 respiration rate 16 BP 105/68 O2 sat 90 and room air he did have a good reduction in his white blood cell count he did have some blood cultures called from the outside hospital with gram-positive in 2 of 2 blood cultures. He remains on antibiotic coverage Physical exam is awake alert appropriate his heart is regular without murmurs his lungs are clear without wheezes or crackles he has no coughing his abdomen normal active bowel sounds soft and nontender Diabetic ketoacidosis perhaps precipitated by a bacteremia or septic episode we' ll maintain his triple antibiotic coverage until we have sensitivities of this organism possibly we could step this down to vancomycin only we'll maintain his basal bolus insulin with good attention paid to his anion gap and bicarbonate continuing good hydration. If no significant source is found is present be staph or strep perhaps an echocardiogram would be in line to look for endocarditis Documented By: Sivakumar Gruber (Sivakumar Gruber M.D.)
[2017-08-17] MEDS: PANTOprazole INJ 40 MG in SYRINGE 0 ML IV SCH (09:58)
[2017-08-17] MEDS: INSULIN REGULAR 250 UNITS in SODIUM CHLORIDE 0.9% 250ML 250 ML IV SCH (11:52)
--- NOTE | 2017-08-17 12:07 | Clinical Documentation Query ---
AYAZ RAMIREZ : CLINICAL DOCUMENTATION QUERY Patient is a 37 year old male admitted for DKA. In the setting of lactic acidemia/anion gap acidosis associated with DKA, consider the AMS to be a manifestation of this constellation of clinical findings as suggested below. 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 In your clinical opinion is this patient being managed for: ( ) Metabolic encephalopathy, POA, resolved ( ) Not Agree ( ) Other explanation of clinical findings (Please Explain) ( ) Unable to determine (Please Define) ( ) Need to Discuss The medical record reflects the following clinical findings, treatment, and risk factors. Clinical Indicators: As above Treatment:He has been treated with IVF, insulin infusion, serial chemistries, empiric antibiotics, ICU standard of care, steam power plant operator consultation Risk Factors: DKA Please clarify and document your clinical opinion in the progress notes and discharge summary. Terms such as "probable", "suspected", "likely", "questionable", "possible", or "still to be ruled out" are acceptable. IF IN AGREEMENT, YOU MUST DOCUMENT ABOVE DIAGNOSTIC STATEMENT IN DAILY PROGRESS NOTES AND DISCHARGE SUMMARY. This document is not part of the patient's record. Thank You, Rohith Madrid, ELZA [phone]
--- NOTE | 2017-08-17 14:39 | Pharmacy Progress Note ---
Glycemic Control Intl Consult Date of Service Aug 17, 2017. Scope Glycemic Pharmacist consulted by Dr Mott on 08/16 for glycemic control and to write orders per [facility] inpatient glycemic control protocol Objective Weight (Kilograms): 67.400 Accuchecks BSG (last 24hrs): Test 08/16/17 17:48 08/16/17 22:14 08/16/17 23:04 08/16/17 23:54 Random Glucose 702 mg/dl (70-99) 263 mg/dl (70-99) Bedside Glucose 394 mg/dl (70-99) 280 mg/dl (70-99) Test 08/16/17 23:57 08/17/17 01:00 08/17/17 01:55 08/17/17 03:01 Bedside Glucose 255 mg/dl (70-99) 275 mg/dl (70-99) 239 mg/dl (70-99) 153 mg/dl (70-99) Test 08/17/17 03:57 08/17/17 03:59 08/17/17 05:00 08/17/17 06:02 Random Glucose 239 mg/dl (70-99) Bedside Glucose 233 mg/dl (70-99) 247 mg/dl (70-99) 267 mg/dl (70-99) Test 08/17/17 07:22 08/17/17 07:53 08/17/17 08:44 08/17/17 10:05 Bedside Glucose 219 mg/dl (70-99) 294 mg/dl (70-99) 232 mg/dl (70-99) Random Glucose 205 mg/dl (70-99) Test 08/17/17 11:42 08/17/17 12:54 Bedside Glucose 328 mg/dl (70-99) 286 mg/dl (70-99) Laboratory Data (last 24hrs) Test 08/16/17 17:48 08/16/17 20:00 08/16/17 23:54 08/17/17 03:57 Anion Gap 30.0 mmol/L 19.0 mmol/L 14.0 mmol/L BUN/Creatinine Ratio 15.4 16.2 18.3 Blood Urea Nitrogen 38 mg/dl 31 mg/dl 30 mg/dl Creatinine 2.48 mg/dl 1.92 mg/dl 1.63 mg/dl Potassium Level 4.5 mmol/L 4.2 mmol/L 3.8 mmol/L Sodium Level 135 mmol/L 144 mmol/L 144 mmol/L White Blood Count 41.35 K/uL 22.43 K/uL Red Blood Count 4.18 M/uL 3.52 M/uL Hemoglobin 14.0 g/dL 11.6 g/dL Hematocrit 40.4 % 32.1 % Mean Corpuscular Volume 96.7 fL 91.2 fL Mean Corpuscular Hemoglobin 33.5 pg 33.0 pg Mean Corpuscular Hemoglobin Concent 34.7 g/dl 36.1 g/dl Platelet Count 522 K/uL 389 K/uL Mean Platelet Volume 9.7 fL 9.1 fL Hemoglobin A1c 9.6 % Test 08/17/17 07:53 Anion Gap 14.0 mmol/L BUN/Creatinine Ratio 14.8 Blood Urea Nitrogen 27 mg/dl Creatinine 1.80 mg/dl Potassium Level 3.8 mmol/L Sodium Level 145 mmol/L HbA1c Test 08/16/17 20:00 Hemoglobin A1c 9.6 % (4.5-5.6) H Recent Pertinent Medications Outpatient Anti-diabetic Regimen: * Lantus 7 units SC BID * A1c = 9.6 % 08/16/17 The patient is currently receiving: * Insulin drip, goal range 150-250 mg/dL Risk Factors for Insulin Resistance: * Infection: questionable PNA * IVF: D5 1/2NS w KCl 20 meq/L @ 150 mL/hr (stopped @ ~1300) * Diet:Type 1 Assessment & Plan ASSESSMENT: * 37 yo M TYPE 1 diabetic admitted with DKA, initiated on insulin drip * Anion gap still elevated to 14, but still OK to transition as CO2 >15 and pH > 7.3 * Per BUSINESS MGR, concerned that outpatient adherence may not be the best. Also supported by A1c of 9.6% * Lantus * Will give very slightly less than total daily outpatient Lantus dose (this is weight based stress of 1) 2nd concerns for outpatient regimen adherence * Will continue BID (similar to outpatient regimen) * Novolog * Weight-based stress of 2 * Two overnight checks * Insulin drip * Stop 6 hr after Lantus admin PLAN FOR INPATIENT GLYCEMIC CONTROL: * Stop IV insulin drip at 1600 today * Holding outpatient oral diabetes medications * Basal insulin with LANTUS 12 units SQ x1 then ongoing based on BSG: * 0 units for BSG < 120 mg/dL * 6 units for BSG 120-200 mg/dL * 10 units for BSG >200 mg/dL * Correctional Insulin with NOVOLOG per scale ACHS or Q6hrs while NPO - additional checks at 0000,0400 * Goal Range: Low 120 mg/dL - High 160 mg/dL * Correction Factor: 35 mg/dL/unit * Nutritional / Prandial insulin per carb ratio of 1 unit per 12 grams CHO consumed * Please note that the plan above was derived based on current level of insulin resistance and hospital stress. These recommendations are appropriate for inpatient admission only. Plan of care upon discharge will need to be reassessed to avoid potential outpatient hypo/hyperglycemia. Thank you.
--- NOTE | 2017-08-17 15:00 | Pharmacy Progress Note ---
Pharmacy Antibiotic Consult Date of Service: Aug 17, 2017. Pharmacy Dosing Scope Pharmacy is consulted to initiate vancomycin IV dosing therapy, order appropriate labs and adjust drug dose/frequency. Subjective The patient is a 37 year old male admitted on Aug 16, 2017 at 17:42. Objective Height (Feet): 5 Height (Inches): 9.00 Weight (Kilograms): 67.400 Lab Results (24hrs): Test 08/16/17 17:48 08/16/17 18:20 08/16/17 18:30 08/16/17 19:18 White Blood Count 41.35 K/uL (4.8-10.8) Red Blood Count 4.18 M/uL (4.7-6.1) Hemoglobin 14.0 g/dL (14.0-18.0) Hematocrit 40.4 % (42-52) Mean Corpuscular Volume 96.7 fL (80-100) Mean Corpuscular Hemoglobin 33.5 pg (25-34) Mean Corpuscular Hemoglobin Concent 34.7 g/dl (32-36) Platelet Count 522 K/uL (130-400) Mean Platelet Volume 9.7 fL (7.4-10.4) RDW Standard Deviation 47.4 fL (36.4-46.3) RDW Coefficient of Variation 13.4 % (11.5-14.5) Neutrophils % (Manual) 89.7 % Lymphocytes % (Manual) 8.6 % Monocytes % (Manual) 1.7 % Neutrophils # (Manual) 37.09 K/uL (1.4-6.5) Total Absolute Neutrophils 37.09 K/uL (1.4-6.5) Lymphocytes # (Manual) 3.56 K/uL (1.2-3.4) Total Absolute Lymphocytes 3.56 K/uL (1.2-3.4) Monocytes # (Manual) 0.70 K/uL (0.11-0.59) Hypersegmented Polys 1+ Prothrombin Time 9.7 SECONDS (9.0-12.0) Prothromb Time International Ratio 0.9 (0.9-1.1) Activated Partial Thromboplast Time 23.7 SECONDS (21.0-31.0) Partial Thromboplastin Ratio 0.9 Total Creatine Kinase 144 U/L (39-308) Creatine Kinase MB 2.9 ng/ml (0.5-3.6) Creatine Kinase MB Ratio 2.0 (0-3.0) Troponin I < 0.015 ng/ml (0-0.045) Beta-Hydroxybutyric Acid 68.80 mg/dL (0.2-2.81) Procalcitonin 13.12 ng/ml (0-0.5) Venous Blood pH 7.23 (7.36-7.41) Venous Blood Partial Pressure CO2 22 mmHg (38.0-50.0) Venous Blood Partial Pressure O2 43 mmHg Venous Blood HCO3 9 mmol/L Venous Blood Oxygen Saturation 74.6 % Venous Blood Base Excess -16.6 mEq/L Urine Color YELLOW Urine Appearance CLOUDY (CLEAR) Urine pH 5.0 (4.5-7.5) Urine Specific [place] 1.033 (1.000-1.030) Urine Protein 2+ (NEG) Urine Glucose (UA) 3+ (NEG) Urine Ketones 2+ (NEG) Urine Occult Blood 2+ (NEG) Urine Nitrite NEG (NEG) Urine Bilirubin NEG (NEG) Urine Urobilinogen NEG (NEG) Urine Leukocyte Esterase NEG (NEG) Urine WBC (Auto) 10-30 /hpf (0-5) Urine RBC (Auto) 10-30 /hpf (0-4) Urine Hyaline Casts (Auto) 1-5 /lpf (0-5) Urine Epithelial Cells (Auto) >30 /lpf (0-5) Urine Bacteria (Auto) NEG (NEG) Urine Renal Epithelial Cells /lpf (0-5) Urine Pathogenic Casts 1-5 GRANULAR CASTS /lpf (0) Urine Yeast (Auto) (NONE PRSENT) Bedside Glucose (other) 404 mg/dl (70-99) Test 08/16/17 20:00 08/16/17 21:19 08/16/17 23:54 08/17/17 03:57 Estimated Average Glucose 229 mg/dl Hemoglobin A1c 9.6 % (4.5-5.6) Bedside Glucose (other) 350 mg/dl (70-99) Ammonia 28.0 umol/L (11-32) White Blood Count 22.43 K/uL (4.8-10.8) Red Blood Count 3.52 M/uL (4.7-6.1) Hemoglobin 11.6 g/dL (14.0-18.0) Hematocrit 32.1 % (42-52) Mean Corpuscular Volume 91.2 fL (80-100) Mean Corpuscular Hemoglobin 33.0 pg (25-34) Mean Corpuscular Hemoglobin Concent 36.1 g/dl (32-36) Platelet Count 389 K/uL (130-400) Mean Platelet Volume 9.1 fL (7.4-10.4) RDW Standard Deviation 44.9 fL (36.4-46.3) RDW Coefficient of Variation 13.5 % (11.5-14.5) Neutrophils % (Manual) 78.2 % Lymphocytes % (Manual) 14.8 % Monocytes % (Manual) 6.1 % Metamyelocytes % 0.9 % Neutrophils # (Manual) 17.54 K/uL (1.4-6.5) Total Absolute Neutrophils 17.54 K/uL (1.4-6.5) Lymphocytes # (Manual) 3.32 K/uL (1.2-3.4) Total Absolute Lymphocytes 3.32 K/uL (1.2-3.4) Monocytes # (Manual) 1.37 K/uL (0.11-0.59) Metamyelocytes # 0.20 K/uL (0-0) Venous Blood pH 7.36 (7.36-7.41) Est Creatinine Clear Calc Drug Dose 58.2 ml/min Lactic Acid Level 1.6 mmol/L (0.4-2.0) Phosphorus Level 2.4 mg/dl (2.5-4.9) Magnesium Level 2.1 mg/dl (1.8-2.4) Total Bilirubin 0.5 mg/dl (0.2-1) Aspartate Amino Transf (AST/SGOT) 366 U/L (15-37) Alanine Aminotransferase (ALT/SGPT) 271 U/L (12-78) Alkaline Phosphatase 229 U/L (45-117) Total Protein 5.8 gm/dl (6.4-8.2) Albumin 3.0 gm/dl (3.4-5.0) Globulin 2.8 gm/dl (2.5-4.0) Albumin/Globulin Ratio 1.1 (0.9-2) Procalcitonin 19.63 ng/ml (0-0.5) Test 08/17/17 07:53 08/17/17 12:54 08/17/17 14:13 08/17/17 14:53 Venous Blood pH 7.35 (7.36-7.41) Sodium Level 145 mmol/L (136-145) Potassium Level 3.8 mmol/L (3.5-5.1) Chloride Level 112 mmol/L (98-107) Carbon Dioxide Level 19 mmol/L (21-32) Anion Gap 14.0 mmol/L (3-11) Blood Urea Nitrogen 27 mg/dl (7-18) Creatinine 1.80 mg/dl (0.60-1.40) Est Creatinine Clear Calc Drug Dose 53.6 ml/min Estimated GFR () 54.5 Estimated GFR (Non- 47.0 BUN/Creatinine Ratio 14.8 (10-20) Random Glucose 205 mg/dl (70-99) Lactic Acid Level 4.0 mmol/L (0.4-2.0) Calcium Level 8.9 mg/dl (8.5-10.1) Phosphorus Level 2.5 mg/dl (2.5-4.9) Magnesium Level 2.2 mg/dl (1.8-2.4) Total Bilirubin 0.6 mg/dl (0.2-1) Aspartate Amino Transf (AST/SGOT) 355 U/L (15-37) Alanine Aminotransferase (ALT/SGPT) 288 U/L (12-78) Alkaline Phosphatase 251 U/L (45-117) Total Protein 6.8 gm/dl (6.4-8.2) Albumin 3.5 gm/dl (3.4-5.0) Globulin 3.3 gm/dl (2.5-4.0) Albumin/Globulin Ratio 1.1 (0.9-2) Bedside Glucose 286 mg/dl (70-99) 247 mg/dl (70-99) Assessment & Plan Assessment * 37 yo M transfer from [facility] for DKA, being covered empirically (?pulmonary source if any) with Zosyn, vanc 2nd significant leukocytosis and meeting SIRS criteria. * Nasal swab negative for MRSA - may consider stopping vancomycin tomorrow if patient continues to improve * Renal function improving - OK to keep vancomycin at current dose Plan * Continue vancomycin 1000 mg IV q12h * Trough prior to 5th overall dose - 08/18 @ 0830 Pharmacy will continue to follow and will adjust dose/frequency as necessary. Thank you
[2017-08-17 15:27] LABS: CALCIUM 7.8 mg/dl (8.5-10.1); CREATININE 1.77 mg/dl (0.60-1.40); POTASSIUM 3.4 mmol/L (3.5-5.1)
[2017-08-17] MEDS ORDERED: POTASSIUM CHLR 20 MEQ / WTR 20 MEQ in PREMIXED WATER 100 ML IV STA (15:49)
[2017-08-17] MEDS ORDERED: INSULIN DRIP - STOP ORDER ONE (16:00)
[2017-08-17] MEDS: POTASSIUM CHLORIDE INJ 20 MEQ in SODIUM CHLORIDE 0.9% 1000ML 1,000 ML IV SCH (17:59)
[2017-08-17] MEDS: AZITHROMYCIN IV 500 MG in DEXTROSE 5% 250ML 250 ML IV SCH (18:14)
[2017-08-17] MEDS: INSULIN GLARGINE SOLOSTAR 100 UNITS/ML 3 ML PEN SC SCH (21:06)
[2017-08-18] MEDS: POTASSIUM CHLORIDE INJ 20 MEQ in SODIUM CHLORIDE 0.9% 1000ML 1,000 ML IV SCH ×4 (00:14→19:54)
[2017-08-18 01:11] VITALS: BP 124/79; PULSE 89; TEMP 36.7; O2SAT 97
[2017-08-18] MEDS: PIPERACILL/TAZOBAC IV 4.5 GM in DEXTROSE 5% 100ML IV SCH ×2 (04:04→12:19)
[2017-08-18] MEDS: INSULIN ASPART 100 UNITS/ML 3 ML PEN SC SCH ×5 (04:12→20:40)
[2017-08-18] MEDS: HEPARIN SOD 5000 UNIT/0.5 ML CARP SQ SCH ×3 (06:06→20:41)
[2017-08-18 06:10] LABS: HEMATOCRIT 30.8 % (42-52); HEMOGLOBIN 10.7 g/dL (14.0-18.0); MEAN CELL VOLUME 93.6 fL (80-100); MEAN CORPUSCULAR HEMOGLOBIN 32.5 pg (25-34); MEAN CORPUSCULAR HGB CONC 34.7 g/dl (32-36); MEAN PLATELET VOLUME 9.1 fL (7.4-10.4); PLATELET COUNT 301 K/uL (130-400); RED CELL DISTRIBUTION WIDTH CV 13.8 % (11.5-14.5); RED CELL DISTRIBUTION WIDTH SD 47.6 fL (36.4-46.3); WHITE BLOOD COUNT 13.46 K/uL (4.8-10.8)
[2017-08-18 06:45] LABS: ALBUMIN 2.6 gm/dl (3.4-5.0); CALCIUM 7.4 mg/dl (8.5-10.1); CREATININE 1.34 mg/dl (0.60-1.40); POTASSIUM 3.2 mmol/L (3.5-5.1)
[2017-08-18 06:48] LABS: TOTAL PROTEIN 5.3 gm/dl (6.4-8.2)
[2017-08-18 07:32] VITALS: BP 123/78; PULSE 85; TEMP 36.8; O2SAT 97
[2017-08-18] MEDS ORDERED: VANCOMYCIN TROUGH ONE (08:30)
--- NOTE | 2017-08-18 08:57 | Progress Note ---
Subjective Date of Service: Aug 18, 2017. Subjective pt is awake and alert, was quizzed about any portal of infection or recent issue that may lead to the reported blood cultures from [facility], he cannot relate any insight nursing voiced concerns about poor living situation Review of Systems Constitutional: + chills, No fever, No weakness, No fatigue Respiratory: No cough, No shortness of breath, No dyspnea on exertion Cardiac: No chest pain, No PND, No edema Abdomen: No pain, No nausea, No vomiting, No diarrhea Musculoskeletal: No joint pain, No muscle pain Neurologic: No memory loss, No weakness Psychiatric: No depression symptoms, No anxiety Endo: No fatigue, No excessive thirst Objective Vital Signs Date Time Temp Pulse Resp B/P (MAP) Pulse Ox O2 Delivery O2 Flow Rate FiO2 08/18/17 07:32 36.8 85 16 123/78 (93) 97 Room Air 08/18/17 01:11 36.7 89 20 124/79 (94) 97 Room Air 08/17/17 15:31 36.9 98 20 119/70 (86) 99 Room Air 08/17/17 12:26 36.6 102 18 98 08/17/17 11:55 36.6 102 18 106/68 (81) 98 Room Air Physical Exam General Appearance: WD/WN, + mild distress Eyes: normal inspection, sclerae normal Respiratory/Chest: chest non-tender, lungs clear, normal breath sounds Cardiovascular: regular rate, rhythm, no murmur Abdomen: normal bowel sounds, non tender, soft Extremities: no pedal edema, no calf tenderness Neurologic/Psychiatric: alert, oriented x 3 Skin: normal color, warm/dry Laboratory Results Last 24 Hours Test 08/17/17 10:05 08/17/17 11:06 08/17/17 11:42 08/17/17 12:54 Bedside Glucose 232 mg/dl 233 mg/dl 328 mg/dl 286 mg/dl Test 08/17/17 14:13 08/17/17 14:53 08/17/17 15:01 08/17/17 17:00 Bedside Glucose 247 mg/dl 163 mg/dl 300 mg/dl Sodium Level 142 mmol/L Potassium Level 3.4 mmol/L Chloride Level 111 mmol/L Carbon Dioxide Level 19 mmol/L Anion Gap 12.0 mmol/L Blood Urea Nitrogen 24 mg/dl Creatinine 1.77 mg/dl Est Creatinine Clear Calc Drug Dose 54.5 ml/min Estimated GFR () 55.6 Estimated GFR (Non- 48.0 BUN/Creatinine Ratio 13.4 Random Glucose 167 mg/dl Calcium Level 7.8 mg/dl Test 08/17/17 19:51 08/17/17 23:45 08/18/17 04:08 08/18/17 05:16 Bedside Glucose 184 mg/dl 103 mg/dl 185 mg/dl White Blood Count 13.46 K/uL Red Blood Count 3.29 M/uL Hemoglobin 10.7 g/dL Hematocrit 30.8 % Mean Corpuscular Volume 93.6 fL Mean Corpuscular Hemoglobin 32.5 pg Mean Corpuscular Hemoglobin Concent 34.7 g/dl RDW Standard Deviation 47.6 fL RDW Coefficient of Variation 13.8 % Platelet Count 301 K/uL Mean Platelet Volume 9.1 fL Erythrocyte Sedimentation Rate 6 mm/hr Sodium Level 142 mmol/L Potassium Level 3.2 mmol/L Chloride Level 110 mmol/L Carbon Dioxide Level 22 mmol/L Anion Gap 10.0 mmol/L Blood Urea Nitrogen 15 mg/dl Creatinine 1.34 mg/dl Est Creatinine Clear Calc Drug Dose 72.0 ml/min Estimated GFR () 77.9 Estimated GFR (Non- 67.2 BUN/Creatinine Ratio 11.4 Random Glucose 122 mg/dl Calcium Level 7.4 mg/dl Magnesium Level 2.2 mg/dl Total Bilirubin 0.5 mg/dl Aspartate Amino Transf (AST/SGOT) 129 U/L Alanine Aminotransferase (ALT/SGPT) 171 U/L Alkaline Phosphatase 189 U/L Total Protein 5.3 gm/dl Albumin 2.6 gm/dl Globulin 2.7 gm/dl Albumin/Globulin Ratio 1.0 Test 08/18/17 07:41 08/18/17 08:29 Bedside Glucose 172 mg/dl Assessment and Plan 37 yo M with PMHx DM I, MDD, anxiety, who presents as a direct transfer from [facility] emergency room with DKA. He was reportedly found down by his family, hyperventilating, and minimally responsive. DKA in setting of DM I, Lactic Acidosis, Metabolic encephalopathy has transitioned off gtt, given Lantus Glycemic pharmacy on board. transitioned to basal bolus, anion gap is closed and tolerating diet - A1c=9.6 SIRS-WBCs 40 K, tachycardic, afebrile, tachypneic on arrival, no definite source of infection. UA is negative for infection. Blood cultures were obtained at [facility] called for 2 of 2 positive for gram positives, maintain antibiotic until sensitivities,negative echo for vegetations, esr normal - WBC continues to improve with vancomycin, Zosyn, and azithromycin may de escalate once final culture speciation MARYJANE improved/resolved with IV hydration Shock liver-transaminases improved/resolved with support Major depressive disorder/anxiety disorder-seems continues to be stable on Prozac DVT ppx: heparin subq
[2017-08-18] MEDS: INSULIN GLARGINE SOLOSTAR 100 UNITS/ML 3 ML PEN SC SCH ×2 (09:08→20:40)
[2017-08-18] MEDS: VANCOMYCIN INJ 1,000 MG in SODIUM CHLORIDE 0.9% 250ML 250 ML IV SCH (09:09)
--- NOTE | 2017-08-18 09:45 | Pharmacy Progress Note ---
Glycemic: Assessment & Plan Date of Service Aug 18, 2017. Assessment & Plan BSGs ranging 103 - 300 mg/dl over the past 24hrs. Recently converted off of an insulin gtt. * Basal insulin: Lantus per scale BID: less than 120 give 0, 120- 200 give 6, greater than 200 give 10 * Correctional Insulin: Novolog Correction per scale ACHS Goal Range: Low 120 mg/dL - High 160 mg/dL Correction Factor: 35 mg/dL/unit * Prandial insulin: Per carb ratio of 1 unit per 12 grams CHO consumed Plan: Will adjust lantus scale to: BSG less than or equal to 180 give 7u, greater than 180 give 10u. Goal is to transition Mr. Fields to his home dose. Will continue current CF/CR and change goal range to 110-140. He ate 200g of carbs this morning. Resulting in him receiving 18u of prandial insulin. His lunch time BSG is 204. I worry about insulin stacking at this point. Will not tighten CF/CR. * Please note that the plan above was derived based on current level of insulin resistance and hospital stress. These recommendations are appropriate for inpatient admission only. Plan of care upon discharge will need to be reassessed to avoid potential outpatient hypo/hyperglycemia.
--- NOTE | 2017-08-18 10:06 | Pharmacy Progress Note ---
Pharmacy Abx Dose Progress Nt Date of Service Aug 18, 2017. Pharmacy Dosing Scope The patient is currently receiving the following antimicrobial agents per Pharmacy consult: Vanco/Zosyn Objective Height (Feet): 5 Height (Inches): 9.00 Weight (Kilograms): 67.400 Vital Signs (Past 12Hrs) Vital Signs Past 12 Hours Date Time Temp Pulse Resp B/P (MAP) Pulse Ox O2 Delivery O2 Flow Rate FiO2 08/18/17 07:32 36.8 85 16 123/78 (93) 97 Room Air 08/18/17 01:11 36.7 89 20 124/79 (94) 97 Room Air Lab Results (24Hrs) Laboratory Tests (24 Hours) Test 08/18/17 05:16 Erythrocyte Sedimentation Rate 6 mm/hr (0-14) White Blood Count 13.46 K/uL (4.8-10.8) H Micro Results Date/Time Source Procedure Growth Status 08/16/17 17:45 Nasal MRSA DNA Surveillance Screen - Final Specimen Negative for MRSA by DNA Probe Complete Assessment & Plan Assessment Mr. Fields is currently receiving Vancomycin/Zosyn/Zithromax for bacteremia/ pulm source. Leukocytosis has resolved and he's afebrile. 2/ BC from [facility] are growing gram positives. HACEK organisms are appropriately covered at this juncture. ECHO ordered and pending. His renal fxn has improved markedly, unsure if this is his baseline. Current pt population p'kinetics: t1/2: 10hrs, ke= [id number]. Will discuss with medical team about potential d/c'ing of zosyn/ zithromax. Plan Vanco: * Increase Vanco to Vancomycin ~1250mg (19mg/kg) q12 set to start at 1600 * Goal trough for bacteremia/pulm etiology: 15-20mcg/mL * Trough ordered for 08/20/17 @ 0330, this will be true Css Zosyn: * Continue current dose and regimen of EI Zosyn 4.5g q8, appropriate for eCrCl> 20cc/min and clinical status Pharmacy will continue to follow and will adjust dose/frequency as necessary. Thank you.
--- NOTE | 2017-08-18 11:17 | Medical Student: [facility] ---
Med Student Progress Note Date of Service Aug 18, 2017. Subjective Pt evaluation today including: conversation w/ patient Patient has no complaints. Hard to obtain history as patient only nods or answers in 1-2 words. Transition from GTT to basal/mealtime insulin is going well. Review of Systems Constitutional: No fever, No chills Eyes: No worsening of vision, No eye pain ENT: No nasal symptoms, No sore throat Respiratory: No cough, No sputum Cardiac: No chest pain, No orthopnea Abdomen: No pain, No nausea Male : No dysuria, No urinary frequency Neurologic: No memory loss, No paralysis Skin: No rash, No itch All Other Systems: Reviewed and Negative Objective Vital Signs Date Time Temp Pulse Resp B/P (MAP) Pulse Ox O2 Delivery O2 Flow Rate FiO2 08/18/17 07:32 36.8 85 16 123/78 (93) 97 Room Air 08/18/17 01:11 36.7 89 20 124/79 (94) 97 Room Air 08/17/17 15:31 36.9 98 20 119/70 (86) 99 Room Air 08/17/17 12:26 36.6 102 18 98 08/17/17 11:55 36.6 102 18 106/68 (81) 98 Room Air Physical Exam General Appearance: WD/WN, no apparent distress Eyes: bilateral eyes normal inspection, bilateral eyes EOMI Neck: supple, no adenopathy Respiratory/Chest: chest non-tender, lungs clear, normal breath sounds Cardiovascular: regular rate, rhythm, no edema, no murmur Abdomen: normal bowel sounds, non tender, soft Extremities: normal range of motion, non-tender Neurologic/Psychiatric: alert, normal mood/affect, oriented x 3 Skin: normal color, warm/dry Laboratory Results Last 24 Hours Test 08/17/17 11:06 08/17/17 11:42 08/17/17 12:54 08/17/17 14:13 Bedside Glucose 233 mg/dl 328 mg/dl 286 mg/dl 247 mg/dl Test 08/17/17 14:53 08/17/17 15:01 08/17/17 17:00 08/17/17 19:51 Sodium Level 142 mmol/L Potassium Level 3.4 mmol/L Chloride Level 111 mmol/L Carbon Dioxide Level 19 mmol/L Anion Gap 12.0 mmol/L Blood Urea Nitrogen 24 mg/dl Creatinine 1.77 mg/dl Est Creatinine Clear Calc Drug Dose 54.5 ml/min Estimated GFR () 55.6 Estimated GFR (Non- 48.0 BUN/Creatinine Ratio 13.4 Random Glucose 167 mg/dl Calcium Level 7.8 mg/dl Bedside Glucose 163 mg/dl 300 mg/dl 184 mg/dl Test 08/17/17 23:45 08/18/17 04:08 08/18/17 05:16 08/18/17 07:41 Bedside Glucose 103 mg/dl 185 mg/dl 172 mg/dl White Blood Count 13.46 K/uL Red Blood Count 3.29 M/uL Hemoglobin 10.7 g/dL Hematocrit 30.8 % Mean Corpuscular Volume 93.6 fL Mean Corpuscular Hemoglobin 32.5 pg Mean Corpuscular Hemoglobin Concent 34.7 g/dl RDW Standard Deviation 47.6 fL RDW Coefficient of Variation 13.8 % Platelet Count 301 K/uL Mean Platelet Volume 9.1 fL Erythrocyte Sedimentation Rate 6 mm/hr Sodium Level 142 mmol/L Potassium Level 3.2 mmol/L Chloride Level 110 mmol/L Carbon Dioxide Level 22 mmol/L Anion Gap 10.0 mmol/L Blood Urea Nitrogen 15 mg/dl Creatinine 1.34 mg/dl Est Creatinine Clear Calc Drug Dose 72.0 ml/min Estimated GFR () 77.9 Estimated GFR (Non- 67.2 BUN/Creatinine Ratio 11.4 Random Glucose 122 mg/dl Calcium Level 7.4 mg/dl Magnesium Level 2.2 mg/dl Total Bilirubin 0.5 mg/dl Aspartate Amino Transf (AST/SGOT) 129 U/L Alanine Aminotransferase (ALT/SGPT) 171 U/L Alkaline Phosphatase 189 U/L Total Protein 5.3 gm/dl Albumin 2.6 gm/dl Globulin 2.7 gm/dl Albumin/Globulin Ratio 1.0 Test 08/18/17 08:29 Vancomycin Level Trough 12.2 mcg/ml Assessment and Plan Assessment and Plan: Assessment: This is a 37-year-old male with a history of type 1 DM, MDD, and anxiety who presented to [facility] 08/16 as a direct admit from [facility] ED in [place]. Patient was found hyperventilating and surrounded by empty Mt. Dew bottles by parents and was brought to ED. Blood glucose at [facility] was 1160. Per [place] records, patient is a frequent visitor with similar presentation. Has improved since admission with BSGs 120-200. Plan: DKA in type 1 DM, lactic acidosis, metabolic encephalopathy - BSGs improved since admission, will transition from insulin GTT to basal bolus and mealtime dose per glycemic pharm recs - A1c is 9.6% - IV fluids continued, switch to D5 wih KCl - K is low today, 3.2; will trend - Request diabetes education coordinator before discharge SIRS - WBC down to 13.46 today from 22.43 08/17 - Patient remains afebrile but is mildly tachycardic - No source IDed yet - CXR negative, UA negative, nasal MRSA negative - Blood cultures from [facility] showed Gram+ cocci - await sensitivities - Continue abx until sensitivities return Vancomycin - increased to 1250 mg IV q12 per pharmacy rec Zosyn - 4.5 g IV q 8 Azithromycin - 500 mg IV daily - Order echo for possible endocarditis source MARYJANE - BUN/Cr improving with hydration - Continue to monitor Shock liver - Liver enzymes trending down but still elevated - Will continue to monitor MDD/anxiety - Continue Prozac DVT prophylaxis - Heparin subQ daily
[2017-08-18] MEDS: PANTOprazole INJ 40 MG in SYRINGE 0 ML IV SCH (12:19)
--- NOTE | 2017-08-18 13:11 | ECHOCARDIOGRAM REPORT ---
*NOTICE TO RECEIVING [employer] AGENCY This information is strictly Confidential and protected under [place] law. [place] law prohibits you from making any further disclosure of this information unless further disclosure is expressly permitted by the written consent of the person to whom it pertains or is authorized by law. A general authorization for the release of medical or other information is not sufficient for this purpose. Hospital accepts no responsibility if the information is made available to any other person, INCLUDING THE PATIENT. Interpretation Summary * Name: JERAMY OTERO Study Date: 08/18/2017 09:52 AM BP: 123/78 mmHg * Patient Location: .[id number]\S\E401\S\1 HR: 85 * : 1980 (M/d/yyyy) Gender: Male Height: 69 in * Age: 37 yrs Ethnicity: CA Weight: 148 lb * Ordering Physician: Sivakumar Gruber * Referring Physician: No Doctor, Assigned * Performed By: Dorothy Cazares RDCS * * Reason For Study: ENDOCARDITIS * BSA: 1.8 m2 * -- Conclusions -- * 1. Normal LV size and wall thickness. * 2. Normal LV function. LVEF 60-65%. No regional wall motion abnormalities. * 3. Normal RV size and function. * 4. Mild TR. Normal estimated RA and PA pressures. * 5. No evidence of vegetations. * 6. No prior studies for comparison. Procedure Details * A complete two-dimensional transthoracic echocardiogram was performed (2D, M-mode, Doppler and color flow Doppler). Left Ventricle * The left ventricle is grossly normal size. * There is normal left ventricular wall thickness. * Ejection Fraction = 60-65%. Right Ventricle * The right ventricle is grossly normal size. * The right ventricular systolic function is normal as assessed by tricuspid annular plane systolic excursion (TAPSE) (normal >1.5 cm). Atria * The left atrial size is normal. * Right atrial size is normal. * No ASD detected; PFO is not assessed. Mitral Valve * The mitral valve is grossly normal. * There is no vegetation seen on the mitral valve. * There is no mitral valve stenosis. * There is trace mitral regurgitation. Tricuspid Valve * The tricuspid valve is not well visualized, but is grossly normal. * There is no tricuspid stenosis. * There is mild tricuspid regurgitation. Aortic Valve * The aortic valve opens well. * The aortic valve is trileaflet. * There is no aortic valvular vegetation. * No hemodynamically significant valvular aortic stenosis. * There is no significant aortic regurgitation. Pulmonic Valve * The pulmonary valve is inadequately visualized, but the Doppler data is adequate for interpretation. * Pulmonic stenosis is absent. * There is no significant pulmonary regurgitation. Great Vessels * The aortic root and proximal ascending aorta are normal sized. Pericardium/Pleural * There is no pericardial effusion. Great Vessels * Normal inferior vena cava size and collapsability with sniff indicates a normal right atrial pressure of 3 mmHg MMode 2D Measurements and Calculations IVSd 1.1 cm IVSs 1.3 cm LVIDd 4.0 cm LVIDs 2.7 cm LVPWd 1.1 cm LVPWs 1.5 cm IVS/LVPW 0.99 FS 32.5 % EDV(Teich) 68.1 ml ESV(Teich) 26.3 ml EF(Teich) 61.5 % EDV(cubed) 61.9 ml ESV(cubed) 19.0 ml EF(cubed) 69.3 % % IVS thick 21.9 % % LVPW thick 32.2 % LV mass(C)d 144.2 grams LV mass(C)dI 79.3 grams/m\S\2 LV mass(C)s 121.5 grams LV mass(C)sI 66.9 grams/m\S\2 SV(Teich) 41.9 ml SI(Teich) 23.0 ml/m\S\2 SV(cubed) 42.8 ml SI(cubed) 23.6 ml/m\S\2 Ao root diam 3.0 cm Ao root area 6.9 cm\S\2 LA dimension 3.4 cm LA/Ao 1.2 LVAd ap4 22.1 cm\S\2 LVLd ap4 8.2 cm EDV(MOD-sp4) 48.9 ml EDV(sp4-el) 50.2 ml LVAs ap4 12.0 cm\S\2 LVLs ap4 6.7 cm ESV(MOD-sp4) 18.6 ml ESV(sp4-el) 18.0 ml EF(MOD-sp4) 61.9 % EF(sp4-el) 64.2 % LVAd ap2 32.1 cm\S\2 LVLd ap2 8.5 cm EDV(MOD-sp2) 99.1 ml EDV(sp2-el) 102.8 ml LVAs ap2 18.9 cm\S\2 LVLs ap2 7.5 cm ESV(MOD-sp2) 44.7 ml ESV(sp2-el) 40.5 ml EF(MOD-sp2) 54.9 % EF(sp2-el) 60.6 % LVLd %diff 3.1 % EDV(MOD-bp) 71.3 ml LVLs %diff 10.2 % ESV(MOD-bp) 30.5 ml EF(MOD-bp) 57.3 % SV(MOD-sp4) 30.3 ml SI(MOD-sp4) 16.7 ml/m\S\2 SV(MOD-sp2) 54.4 ml SI(MOD-sp2) 29.9 ml/m\S\2 SV(MOD-bp) 40.9 ml SI(MOD-bp) 22.5 ml/m\S\2 SV(sp4-el) 32.2 ml SI(sp4-el) 17.7 ml/m\S\2 SV(sp2-el) 62.3 ml SI(sp2-el) 34.3 ml/m\S\2 Doppler Measurements and Calculations MV E max nathaly 102.3 cm/sec MV A max nathaly 73.7 cm/sec MV E/A 1.4 MV dec time 0.22 sec Ao V2 max 167.0 cm/sec Ao max PG 11.1 mmHg Ao max PG (full) 6.6 mmHg LV V1 max PG 4.6 mmHg LV V1 max 106.7 cm/sec TR max nathaly 266.7 cm/sec
[2017-08-18 14:54] VITALS: BP 121/83; PULSE 89; TEMP 36.8; O2SAT 96
[2017-08-18] MEDS: VANCOMYCIN INJ 1,250 MG in SODIUM CHLORIDE 0.9% 250ML 250 ML IV SCH (16:10)
[2017-08-18] MEDS: POTASSIUM CHLORIDE 20 MEQ TABCR PO SCH (19:54)
[2017-08-18 23:52] VITALS: BP 148/88; PULSE 81; TEMP 36.7; O2SAT 98
[2017-08-19] MEDS ORDERED: INSULIN ASPART 100 UNITS/ML 3 ML PEN SC SCH
[2017-08-19] MEDS ORDERED: INSULIN ASPART 100 UNITS/ML 3 ML PEN SC ONE (02:00)
[2017-08-19] MEDS: POTASSIUM CHLORIDE INJ 20 MEQ in SODIUM CHLORIDE 0.9% 1000ML 1,000 ML IV SCH (02:52)
[2017-08-19] MEDS: VANCOMYCIN INJ 1,250 MG in SODIUM CHLORIDE 0.9% 250ML 250 ML IV SCH ×2 (03:45→16:00)
[2017-08-19] MEDS: HEPARIN SOD 5000 UNIT/0.5 ML CARP SQ SCH ×2 (05:54→14:00)
[2017-08-19 06:54] LABS: ALBUMIN 2.5 gm/dl (3.4-5.0); CALCIUM 7.6 mg/dl (8.5-10.1); POTASSIUM 3.8 mmol/L (3.5-5.1); TOTAL PROTEIN 5.2 gm/dl (6.4-8.2)
[2017-08-19 07:27] VITALS: BP 131/85; PULSE 89; TEMP 36.6; O2SAT 97
[2017-08-19] MEDS ORDERED: INSULIN GLARGINE SOLOSTAR 100 UNITS/ML 3 ML PEN SC SCH ×2 (08:00→20:00)
[2017-08-19] MEDS: INSULIN ASPART 100 UNITS/ML 3 ML PEN SC SCH ×2 (08:30→13:37)
[2017-08-19] MEDS: POTASSIUM CHLORIDE 20 MEQ TABCR PO SCH (08:46)
--- NOTE | 2017-08-19 09:07 | Medical Student: [facility] ---
Med Student Progress Note Date of Service Aug 19, 2017. Subjective Pt evaluation today including: conversation w/ patient Patient doing well, has no complaints. When asked about maintaining his insulin regimen at home after discharge, all patient would say is that his "friends would help." Would not provide further information. Review of Systems Constitutional: No fever, No chills ENT: No nasal symptoms, No sore throat Respiratory: No cough, No wheezing Cardiac: No chest pain, No orthopnea Abdomen: No pain, No nausea Musculoskeletal: No joint pain, No muscle pain Male : No dysuria, No urinary frequency Neurologic: No weakness, No numbness/tingling Skin: No rash, No itch All Other Systems: Reviewed and Negative Objective Vital Signs Date Time Temp Pulse Resp B/P (MAP) Pulse Ox O2 Delivery O2 Flow Rate FiO2 08/19/17 07:27 36.6 89 16 131/85 (100) 97 Room Air 08/18/17 23:52 36.7 81 20 148/88 (108) 98 Room Air 08/18/17 14:54 36.8 89 16 121/83 (96) 96 Room Air Physical Exam General Appearance: WD/WN, no apparent distress Eyes: bilateral eyes normal inspection Neck: supple, no adenopathy Respiratory/Chest: chest non-tender, lungs clear Cardiovascular: regular rate, rhythm, no edema, no murmur Abdomen: normal bowel sounds, non tender, soft Extremities: normal range of motion, non-tender Neurologic/Psychiatric: alert, normal mood/affect, oriented x 3 Skin: normal color, warm/dry Laboratory Results Last 24 Hours Test 08/18/17 11:42 08/18/17 16:40 08/18/17 20:14 08/19/17 02:06 Bedside Glucose 204 mg/dl 121 mg/dl 267 mg/dl 176 mg/dl Test 08/19/17 05:46 08/19/17 07:45 Sodium Level 142 mmol/L Potassium Level 3.8 mmol/L Chloride Level 111 mmol/L Carbon Dioxide Level 24 mmol/L Anion Gap 7.0 mmol/L Blood Urea Nitrogen 11 mg/dl Creatinine 1.00 mg/dl Est Creatinine Clear Calc Drug Dose 96.4 ml/min Estimated GFR () 110.9 Estimated GFR (Non- 95.7 BUN/Creatinine Ratio 11.1 Random Glucose 178 mg/dl Calcium Level 7.6 mg/dl Total Bilirubin 0.5 mg/dl Aspartate Amino Transf (AST/SGOT) 76 U/L Alanine Aminotransferase (ALT/SGPT) 128 U/L Alkaline Phosphatase 181 U/L Total Protein 5.2 gm/dl Albumin 2.5 gm/dl Globulin 2.7 gm/dl Albumin/Globulin Ratio 0.9 Bedside Glucose 194 mg/dl Assessment and Plan Assessment and Plan: Assessment: This is a 37-year-old male with a history of type 1 DM, MDD, and anxiety who presented to [facility] 08/16 as a direct admit from [facility] ED in DKA. Patient was found hyperventilating and surrounded by empty Mt. Dew bottles by parents and was brought to ED. Blood glucose at [facility] was 1160. Per [facility] records, patient is a frequent visitor with similar presentation. Has improved since admission with BSGs 120-200. Plan: DKA in type 1 DM, lactic acidosis, metabolic encephalopathy - BSGs improved since admission, will transition from insulin GTT to basal bolus and mealtime dose per glycemic pharm recs - A1c is 9.6% - IV fluids continued, switch to D5 wih KCl - K low 08/18 but within normal range today - Request floor refinisher before discharge SIRS - WBC down to 13.46 today from 22.43 08/17 - Patient remains afebrile but is mildly tachycardic - No source IDed yet - CXR negative, UA negative, nasal MRSA negative - Blood cultures from [facility] showed Gram+ cocci - await sensitivities Spoke with [facility] lab today - thought possibly two different bacteria in one culture which would suggest contamination but results/sensitivities are still pending; no new information available - Continue abx until sensitivities return Vancomycin - increased to 1250 mg IV q12 per pharmacy rec Zosyn - 4.5 g IV q 8 Azithromycin - 500 mg IV daily - Echo done 08/18 - showed no vegetations or findings suggestive of endocarditis MARYJANE - BUN/Cr improving with hydration, now back within normal ranges - Continue to monitor Shock liver - Liver enzymes trending down but still elevated - Will continue to monitor MDD/anxiety - Continue Prozac DVT prophylaxis - Heparin subQ daily
[2017-08-19] MEDS ORDERED: NURSING VERBAL MED ORDER ONE (10:00)
[2017-08-19 11:17] VITALS: BP 139/86; PULSE 94; TEMP 37.6; O2SAT 96
[2017-08-19 11:28] VITALS: BP 129/81; PULSE 97
[2017-08-19 11:43] VITALS: BP 136/83; PULSE 98
[2017-08-19 11:57] VITALS: BP 135/84; PULSE 98
[2017-08-19] MEDS ORDERED: INSDGIPEN SC ×2 (12:36→14:05)
[2017-08-19] MEDS ORDERED: NVLGI/PEN SQ ×2 (12:36→14:05)
--- NOTE | 2017-08-19 12:41 | Discharge Instructions ---
Discharge Instructions Date of Service Aug 19, 2017. Admission Reason for Admission: Severe Dka Discharge Discharge Diagnosis / Problem: diabetic keto acidosis Discharge Goals Goal(s): Diagnostic testing, Therapeutic intervention Activity Recommendations Activity Limitations: as noted below Lifting Limitations: gradually increase as tolerated Please limits sugary drinks and foods high in carbohydrates please see your doctor this week if able . Instructions / Follow-Up Instructions / Follow-Up Call your Primary Care doctor if any of the following symptoms or problems start or get worse: * Shortness of breath or difficulty breathing * Wake up at night short of breath * Chest pain * Cough * Swelling of your hands, feet, or legs * More fatigued or tired with your normal activity * Palpitations - sudden fast heart beats WEIGHT * Weigh yourself every morning after using the bathroom. * Use the same scale. * Wear the same amount of clothing. * Write your weight down on a chart. * Call your Primary Care doctor if you gain more than 2-3 pounds in 1-2 days. MEDICATIONS * Use this discharge instruction sheet for medication instructions. * Take your medications at the time your doctor ordered. * Do not skip a dose of your medicines. * If you miss a dose of medicine, take it as soon as possible, but DO NOT DOUBLE A DOSE. * Read your medicine information when you get home. * Know all of the side effects of your medicine. If in doubt, ask your pharmacist * Call your Primary Care doctor's office if you have any side effects. * Be sure all of your doctors know what medicine and herbs you take (including cold, flu, and herbal medicine). Take the following with you to your follow-up doctor appointments: * Weight Chart * Medication List * List of questions Do not drink excessive alcohol, beer or wine. Current Hospital Diet Patient's current hospital diet: Diabetes Type 1 Diet Discharge Diet Recommended Diet: Diabetes Type 2 Diet Pending Studies Studies pending at discharge: no Laboratory Results Hemoglobin A1c Test 08/16/17 20:00 Range/Units Estimated Average Glucose 229 mg/dl Hemoglobin A1c 9.6 H 4.5-5.6 % Medical Emergencies . Who to Call and When: Call 911 or go to the Emergency Room if: * If at any time you feel your situation is an emergency * You have tightness or pain in your chest that does not go away with rest or Nitroglycerin * You are very short of breath even with rest . Non-Emergent Contact Non-Emergency issues call your: Primary Care Provider Call Non-Emergent contact if: temperature is above 101, your pain is unusual for you . . "Provider Documentation" section prepared by Sivakumar Gruber. . VTE Core Measure Inpt VTE Proph given/why not?: Unfractionated heparin SQ
[2017-08-19 12:48] VITALS: BP 135/84; PULSE 98; TEMP 37.6; O2SAT 96
--- NOTE | 2017-08-19 18:50 | Discharge Summary ---
Discharge Summary Date of Service Aug 19, 2017. Discharge Summary Admission Date: Aug 16, 2017 at 17:42 Discharge Date: Aug 19, 2017 Discharge Disposition: Home with services Principal Diagnosis: DKAresolved Medication Reconciliation Changed Medications: Insulin Aspart (Novolog Flexpen) 100 Units/Ml Inj 8 UNITS SQ AC, #3 PEN 4 Refills (Changed from: please dispense appropriate needles for pen) .. please dispense appropriate needles for pen Insulin Glargine (Lantus Solostar) 100 Unit/Ml Inj 7 UNITS SC BID, #3 PEN (Changed from: please dispense appropriate needles) .. please dispense appropriate needles Continued Medications: Atorvastatin (Lipitor) 40 Mg Tab 40 MG PO DAILY, TAB Esomeprazole Magnesium (Nexium) 40 Mg Capcr 40 MG PO DAILY, CAP Fluoxetine Hcl (Fluoxetine Hcl) 60 Mg Tab 60 MG PO DAILY Lamotrigine (Lamictal) 25 Mg Tab 25 MG PO DAILY, TAB Discharge Exam Review of Systems: Constitutional: No fever, No chills, No sweats Respiratory: No cough, No shortness of breath, No dyspnea on exertion Cardiovascular: No chest pain, No edema Abdomen: No pain, No nausea, No vomiting, No diarrhea Physical Exam: General Appearance: WD/WN, no apparent distress Eyes: normal inspection, PERRL, EOMI Respiratory/Chest: chest non-tender, lungs clear, normal breath sounds Cardiovascular: regular rate, rhythm, no murmur Abdomen / GI: normal bowel sounds, non tender, soft Hospital Course 37 yo M with PMHx DM I, MDD, anxiety, who presents as a direct transfer from [facility] emergency room with DKA. He was reportedly found down by his family, hyperventilating, and minimally responsive. DKA in setting of DM I, Lactic Acidosis, Metabolic encephalopathyresolved has transitioned to Lantus , anion gap is closed and tolerating diet - A1c=9.6 Patient was quizzed and states he takes his Lantus twice a day and he takes 8 units of lisbet log with sliding scale that he is written down at home SIRS-WBCs 40 K, tachycardic, afebrile, tachypneic on arrival, no definite source of infection. UA is negative for infection. Blood cultures were obtained at [facility] called for 2 of 2 positive for gram positives, patient has improved greatly physical inspection is do not reveal any abnormal skin to mucous membrane or any other source of this infection when phoning [facility] they cannot confirm this is not a contaminant we will send 2 sets of blood cultures prior to him leaving have him go home off antibiotics at this time MARYJANE improved/resolved with IV hydration Shock liver-transaminases improved/resolved with support Major depressive disorder/anxiety disorder-seems continues to be stable on Prozac and Lamictal Recommend close follow-up with primary care provider Total Time Spent: Greater than 30 minutes This includes examination of the patient, discharge planning, medication reconciliation, and communication with other providers. Discharge Instructions Please refer to the electronic Patient Visit Report (Discharge Instructions) for additional information.
[2017-08-20] MEDS ORDERED: VANCOMYCIN TROUGH ONE (03:30)
== END 2017-08-19 16:59 | disposition home or self-care (01) | DRG 637 ==
LOC: C.MSICU 17:42 → ENRESERV 08-17 10:46 → C.4E 08-17 11:33
PROVIDERS: ADMIT Internal Medicine; ATTEND Internal Medicine
DX: E10.11 Type 1 diabetes mellitus with ketoacidosis with coma (principal); G93.41 Metabolic encephalopathy; R65.10 Systemic inflammatory response syndrome (SIRS) of non-infectious origin without acute organ dysfunction; F32.9 Major depressive disorder, single episode, unspecified; F41.9 Anxiety disorder, unspecified; E87.5 Hyperkalemia; Z90.49 Acquired absence of other specified parts of digestive tract; Z83.3 Family history of diabetes mellitus